=== PATIENT | male | born 1960 | race Caucasian/White ===

== ENCOUNTER 2024-09-10 06:24 | Day surgery (SDC) | payer OTHER, SELFPAY ==
[2024-09-10 07:15] LABS: Glucose - Point of Care 186 mg/dl (70-99)
== END 2024-09-10 08:55 | disposition home or self-care (01) ==
LOC: GI 06:24
PROVIDERS: ATTENDING PHYSICIAN Internal Medicine Gastroenterology
DX: Z12.11 Encounter for screening for malignant neoplasm of colon (principal); D12.4 Benign neoplasm of descending colon; D12.5 Benign neoplasm of sigmoid colon; K62.1 Rectal polyp; K52.9 Noninfective gastroenteritis and colitis, unspecified; Z86.0101 Personal history of adenomatous and serrated colon polyps
CPT/HCPCS: 45385; 88305; 82962

== ENCOUNTER 2024-10-02 18:27 | Emergency (ER) | payer OTHER, SELFPAY ==
[2024-10-02 18:39] VITALS: BP 169/89
[2024-10-02 19:51] VITALS: BMI 31.2
--- NOTE | 2024-10-02 19:52 | ED.GENMED ---
History of Present Illness
General
Chief Complaint: Musculo-Skeletal Complaint
Source: patient
Exam Limitations: none
Time Seen by Provider: 10/02/24 19:43
History of Present Illness
History of Present Illness:
64yo right hand dominant male presenting for evaluation of right forearm swelling and bruising. Patient was golfing 5 days ago. He had a small knot in his forearm afterwards. He went golfing again 2 days ago and believes he hit his forearm while
he was swinging. He woke up yesterday with pain to the forearm and gradually developed bruising. He was seen at urgent care today and had normal x-rays. He was told to go to the ED for an ultrasound. No paresthesias. He does not take any blood
thinners.
Phy Exam
General Physical Exam
General Presentation: well appearing and no apparent distress
General Skin: warm and dry
General Habitus: normal
General Mental: alert
ENT Exam
ENT Exam: normocephalic
Pulmonary Exam
Pulmonary Exam: no respiratory distress
Neurological Exam
Neurological Exam: alert
Eli Coma Scale
Eye Opening: Spontaneous
Verbal Response: Oriented
Motor Response: Obeys Commands
GCS Total Score: 15
Musculoskeletal Exam
Musculoskeletal Exam: other (R forearm: Ecchymosis and swelling noted with mild tenderness. ROM of wrist and elbow intact. Compartments soft. No pain with passive extension of wrist. 2+ radial pulse and sensation intact. )
Skin Exam
Skin Exam: warm/dry
Psychiatric Exam
Psychiatric Exam: normal mood/affect
Course
Orders/Labs/Results
Orders:
Orders
10/02/24 19:51
Ice Pack-Treatment DIRECTED
Location: R forearm
Venous Doppler Upr Ext Right [US Periph Venous UPPER Ext RT] Urgent
Comment:
Reason For Exam: r forearm bruising
Vital Signs
Initial and Last Documented VS:
Initial Vital Signs
Temp Pulse Resp BP Pulse Ox
98 F 79 16 169/89 98
10/02/24 18:39 10/02/24 18:39 10/02/24 18:39 10/02/24 18:39 10/02/24 18:39
Last Documented Vital Signs
Temp Pulse Resp BP Pulse Ox
98 F 74 16 125/71 99
10/02/24 18:39 10/02/24 20:00 10/02/24 20:00 10/02/24 20:00 10/02/24 20:00
MDM/Problems Addressed
Differential Diagnosis Includes:
64yoM here with R forearm bruising/swelling after playing golf 2 days ago. Sent here by urgent care for ultrasound. Had normal x-rays at urgent care. Bruising and mild tenderness noted on exam. Compartments soft and there is no pain out of
proportion to suggest compartment syndrome. RUE is neurovascularly intact.
Venous duplex obtained which is negative for DVT. Patient diagnosed with contusion. Supportive care discussed including RICE. ED return precautions reviewed including s/s of compartment syndrome. Patient discharged in stable condition.
*Critical Care Note
Total Time (30-74mins, 75-104mins- exclusive of procedures): Not Applicable
ED Attending Note
-
Portions of this chart may have been created with voice recognition software.� Occasional wrong word or��sound alike� substitutions may have occurred due to the inherent limitations of voice recognition software.
Discharge Plan
Departure
Patient Disposition: Home (Routine Discharge)
Date of Disposition: 10/02/24
Time of Disposition: 21:45
Patient with high blood pressure during this ER visit?: No
Discharge Problem:
Contusion of right forearm
Instructions: Contusion (DC)
Referrals:
Avi Garvin DO [Family Provider, Family Practice]
Activity Restrictions/Additional Instructions:
Elevate, ice, and compress your arm to help with swelling. Take Tylenol and ibuprofen as needed for pain.
Please follow-up with your family doctor. Return to the ER with any worsening symptoms including severe pain or new numbness/weakness of your arm.
Interventions
Interventions:
*Risk Screen - Suicide Last Done: 10/02/24 18:42
*General Assessment Last Done: 10/02/24 19:51
*Neglect/Abuse Screening Last Done: 10/02/24 18:42
*ED- Fall Risk Assessment Last Done: 10/02/24 19:51
*Nursing Disposition Last Done: 10/02/24 21:51
ED-Musculoskeletal Assessment Last Done: 10/02/24 19:51
Discharge Date and Time
Discharge Date/Time: 10/02/24 21:51
Print Language: INDONESIAN
[2024-10-02 20:00] VITALS: BP 125/71
== END 2024-10-02 21:51 | disposition home or self-care (01) ==
LOC: EMR 18:27
PROVIDERS: EMERGENCY PHYSICIAN Emergency Medicine; FAMILY PHYSICIAN Family Medicine
DX: S50.11XA Contusion of right forearm, initial encounter (principal); W22.8XXA Striking against or struck by other objects, initial encounter
CPT/HCPCS: 99284; 93971